=== PATIENT | male | born 1950 | race Caucasian/White ===

== ENCOUNTER 2023-05-27 12:43 | Inpatient (IN) | payer OTHER, MEDICAID ==
[~2023-05-27] VITALS: Ht 172.7 cm; Wt 43.1 kg
[2023-05-27 12:45] VITALS: BP 140/89; PULSE 87; RESP 16; TEMP 97.7; O2SAT 97
[2023-05-27 14:39] LABS: BILIRUBIN,URINE NEGATIVE (NEGATIVE); BLOOD, URINE 1+ (NEGATIVE); COLOR,URINE YELLOW (YELLOW); LEUKOCYTE ESTERASE ,URINE NEGATIVE (NEGATIVE); NITRITE, URINE NEGATIVE (NEGATIVE); PH,URINE 7.5 (5.0-9.0); PROTEIN,URINE NEGATIVE (NEGATIVE); UGLUCOSE NEGATIVE (NEGATIVE); UROBILINOGEN,URINE 0.2 EU/dL (0.2 - 1)
[2023-05-27 14:41] LABS: APPEARANCE,URINE SLIGHTLY HAZY (CLEAR)
[2023-05-27] MEDS ORDERED: LEVOFLOXACIN 500 MG/D5W PREMIX 100 ML IV ONE (14:57)
[2023-05-27 14:58] LABS: BASOPHILS % (AUTO) 0.4 % (0.0-2.0); EOSINOPHILS # (AUTO) 0.5 K/uL (0-0.4); HEMATOCRIT 34.5 % (36-52); HEMOGLOBIN 11.9 g/dL (12.0-18.0); LYMPHOCYTES # (AUTO) 1.3 K/uL (2.0-11.5); LYMPHOCYTES % (AUTO) 13.5 % (20.5-51.1); MEAN CORPUSCULAR HEMOGLOBIN 29 pg (27-31); MEAN CORPUSCULAR HGB CONC 34 g/dL (33-37); MEAN CORPUSCULAR VOLUME 85.3 fL (80-94); MONOCYTES # (AUTO) 0.5 K/uL (0.8-1.0); NEUTROPHILS # (AUTO) 7.2 K/uL (1.8-7.7); NEUTROPHILS % (AUTO) 76.1 % (42.2-75.2); PLATELET COUNT (AUTO) 240 K/uL (140-450); RED BLOOD CELL COUNT(AUTO) 4.04 MIL/uL (4.20-6.10); WHITE BLOOD COUNT (AUTO) 9.5 K/uL (4.8-10.8)
[2023-05-27] MEDS: NACL 0.9% 1,000 ML IV SCH (14:59)
[2023-05-27] MEDS: LEVOFLOXACIN 500 MG/D5W PREMIX 100 ML IV ONE (15:00)
[2023-05-27 15:08] LABS: ANION GAP 9.3 (8-16); CALCIUM 8.6 mg/dL (8.5-10.1); CARBON DIOXIDE 33.2 mmol/L (21-32); CHLORIDE 101 mmol/L (98-107); CREATININE 0.6 mg/dL (0.6-1.3); GLUCOSE 88 mg/dL (74-106); POTASSIUM 4.5 mmol/L (3.5-5.1); SODIUM SERUM 139 mmol/L (136-145); UREA NITROGEN, BLOOD 13 mg/dL (7-18)
[2023-05-27 15:17] LABS: ALANINE AMINOTRANSFERASE 26 U/L (12-78); ALBUMIN 2.7 g/dL (3.4-5.0); ALKALINE PHOSPHATASE 86 U/L (50-136); ASPARTATE AMINOTRANSFERASE 31 U/L (15-37); BILIRUBIN,DIRECT 0.1 mg/dL (0.0-0.3); TOTAL BILIRUBIN 0.5 mg/dL (0.0-1.0); TOTAL PROTEIN, SERUM 8.2 g/dL (6.4-8.2)
[2023-05-27 15:20] LABS: FLU A ANTIGEN negative (NEGATIVE); FLU B ANTIGEN NEGATIVE (NEGATIVE)
[2023-05-27] MEDS ORDERED: POTASSIUM CHLORIDE 10 MEQ TABER PO PRN (15:45)
[2023-05-27] MEDS ORDERED: KCL 20 MEQ IN 100 mL PREMIX 200 ML IV PRN (15:45)
[2023-05-27] MEDS ORDERED: MELATONIN 3 MG TAB PO PRN (15:45)
[2023-05-27] MEDS ORDERED: ONDANSETRON 4 MG/2 ML VIAL IVP PRN (15:45)
[2023-05-27] MEDS ORDERED: ACETAMINOPHEN 325 MG TAB PO PRN (15:45)
[2023-05-27] MEDS ORDERED: MORPHINE SULFATE 2 MG/ML SYR IVP PRN (15:45)
[2023-05-27] MEDS ORDERED: OMEP-283 PO (17:08)
[2023-05-27 17:20] VITALS: RESP 20; O2SAT 95
[2023-05-27 18:05] VITALS: PULSE 80; RESP 20; O2SAT 95
[2023-05-27] MEDS: HYDROcodone/APAP 5/325 MG 1 TAB TAB PO PRN (21:15)
[2023-05-27] MEDS: POLYETHYLENE GLYCOL 17 GM/PKT PO PRN (21:16)
[2023-05-28 06:45] LABS: BASOPHILS % (AUTO) 0.4 % (0.0-2.0); EOSINOPHILS # (AUTO) 0.5 K/uL (0-0.4); EOSINOPHILS % (AUTO) 5.4 % (0.0-4.0); HEMATOCRIT 31.3 % (36-52); HEMOGLOBIN 10.9 g/dL (12.0-18.0); LYMPHOCYTES # (AUTO) 1.1 K/uL (2.0-11.5); LYMPHOCYTES % (AUTO) 12.1 % (20.5-51.1); MEAN CORPUSCULAR HEMOGLOBIN 29 pg (27-31); MEAN CORPUSCULAR HGB CONC 35 g/dL (33-37); MEAN CORPUSCULAR VOLUME 84.1 fL (80-94); MONOCYTES # (AUTO) 0.4 K/uL (0.8-1.0); MONOCYTES % (AUTO) 4.9 % (1.7-9.3); NEUTROPHILS # (AUTO) 6.8 K/uL (1.8-7.7); NEUTROPHILS % (AUTO) 77.2 % (42.2-75.2); PLATELET COUNT (AUTO) 197 K/uL (140-450); RED BLOOD CELL COUNT(AUTO) 3.72 MIL/uL (4.20-6.10); RED CELL DISTRIBUTION WIDTH 14.7 % (11.6-13.7); WHITE BLOOD COUNT (AUTO) 8.8 K/uL (4.8-10.8)
[2023-05-28 07:12] LABS: ALANINE AMINOTRANSFERASE 22 U/L (12-78); ALBUMIN 2.4 g/dL (3.4-5.0); ALKALINE PHOSPHATASE 77 U/L (50-136); ANION GAP 11.9 (8-16); ASPARTATE AMINOTRANSFERASE 22 U/L (15-37); CALCIUM 8.1 mg/dL (8.5-10.1); CARBON DIOXIDE 26.7 mmol/L (21-32); CHLORIDE 102 mmol/L (98-107); CREATININE 0.7 mg/dL (0.6-1.3); GLUCOSE 88 mg/dL (74-106); MAGNESIUM 1.7 mg/dL (1.8-2.4); PHOSPHORUS 2.5 mg/dL (2.5-4.9); POTASSIUM 3.6 mmol/L (3.5-5.1); SODIUM SERUM 137 mmol/L (136-145); TOTAL BILIRUBIN 0.8 mg/dL (0.0-1.0); TOTAL PROTEIN, SERUM 7.4 g/dL (6.4-8.2); UREA NITROGEN, BLOOD 10 mg/dL (7-18)
[2023-05-28 08:00] VITALS: BP 134/84; PULSE 89; RESP 17; RESP 20; TEMP 98.6; O2SAT 95; O2SAT 96
[2023-05-28 12:00] VITALS: BP 119/76; PULSE 106; RESP 18; TEMP 99.1; O2SAT 96
[2023-05-28] MEDS ORDERED: CLINDAMYCIN 600 MG in DEXTROSE 5% 50 ML IV SCH (12:00)
[2023-05-28] MEDS: CLINDAMYCIN 600MG/D5W PM 50 ML IV SCH (12:29)
[2023-05-28 16:00] VITALS: BP 131/88; PULSE 80; PULSE 91; RESP 18; TEMP 99; O2SAT 92
[2023-05-28 20:00] VITALS: BP 115/67; PULSE 76; RESP 19; TEMP 99.2; O2SAT 97
[2023-05-29 04:00] VITALS: BP 103/58; PULSE 66; RESP 19; TEMP 98.4; O2SAT 97
[2023-05-29 06:28] LABS: BASOPHILS # (AUTO) 0.1 K/uL (0.00-0.22); EOSINOPHILS # (AUTO) 0.6 K/uL (0-0.4); EOSINOPHILS % (AUTO) 9.5 % (0.0-4.0); HEMATOCRIT 30.9 % (36-52); HEMOGLOBIN 10.5 g/dL (12.0-18.0); MEAN CORPUSCULAR HEMOGLOBIN 29 pg (27-31); MEAN CORPUSCULAR HGB CONC 34 g/dL (33-37); MEAN CORPUSCULAR VOLUME 84.7 fL (80-94); MONOCYTES # (AUTO) 0.4 K/uL (0.8-1.0); MONOCYTES % (AUTO) 6.3 % (1.7-9.3); NEUTROPHILS % (AUTO) 50.2 % (42.2-75.2); PLATELET COUNT (AUTO) 183 K/uL (140-450); RED BLOOD CELL COUNT(AUTO) 3.65 MIL/uL (4.20-6.10); RED CELL DISTRIBUTION WIDTH 14.9 % (11.6-13.7); WHITE BLOOD COUNT (AUTO) 6.1 K/uL (4.8-10.8)
[2023-05-29 07:10] LABS: ALANINE AMINOTRANSFERASE 18 U/L (12-78); ALBUMIN 2.4 g/dL (3.4-5.0); ALKALINE PHOSPHATASE 72 U/L (50-136); ANION GAP 8.5 (8-16); ASPARTATE AMINOTRANSFERASE 18 U/L (15-37); CALCIUM 7.7 mg/dL (8.5-10.1); CARBON DIOXIDE 30.8 mmol/L (21-32); CHLORIDE 102 mmol/L (98-107); CREATININE 0.6 mg/dL (0.6-1.3); GLUCOSE 89 mg/dL (74-106); PHOSPHORUS 3.6 mg/dL (2.5-4.9); POTASSIUM 3.3 mmol/L (3.5-5.1); SODIUM SERUM 138 mmol/L (136-145); TOTAL BILIRUBIN 0.6 mg/dL (0.0-1.0); TOTAL PROTEIN, SERUM 7.2 g/dL (6.4-8.2); UREA NITROGEN, BLOOD 10 mg/dL (7-18)
[2023-05-29 08:00] VITALS: BP 107/72; PULSE 68; RESP 18; TEMP 98.1; O2SAT 98
[2023-05-29 08:11] VITALS: PULSE 68; RESP 20; O2SAT 98
[2023-05-29 16:00] VITALS: BP 128/78; PULSE 69; RESP 18; TEMP 98; O2SAT 100
[2023-05-29] MEDS: KCL 20 MEQ IN 100 mL PREMIX 200 ML IV SCH ×2 (18:34→23:31)
[2023-05-29 20:00] VITALS: BP 120/70; PULSE 72; RESP 19; TEMP 98.5; O2SAT 97
[2023-05-30 07:48] LABS: BASOPHILS % (AUTO) 0.2 % (0.0-2.0); EOSINOPHILS # (AUTO) 0.7 K/uL (0-0.4); EOSINOPHILS % (AUTO) 14.6 % (0.0-4.0); HEMATOCRIT 32.6 % (36-52); LYMPHOCYTES # (AUTO) 1.4 K/uL (2.0-11.5); LYMPHOCYTES % (AUTO) 28.2 % (20.5-51.1); MEAN CORPUSCULAR HEMOGLOBIN 29 pg (27-31); MEAN CORPUSCULAR HGB CONC 34 g/dL (33-37); MEAN CORPUSCULAR VOLUME 85.1 fL (80-94); MONOCYTES # (AUTO) 0.3 K/uL (0.8-1.0); NEUTROPHILS # (AUTO) 2.5 K/uL (1.8-7.7); PLATELET COUNT (AUTO) 191 K/uL (140-450); RED BLOOD CELL COUNT(AUTO) 3.83 MIL/uL (4.20-6.10); RED CELL DISTRIBUTION WIDTH 14.9 % (11.6-13.7)
[2023-05-30 08:00] VITALS: BP 134/82; PULSE 74; RESP 16; TEMP 97.3; O2SAT 99
[2023-05-30 08:27] LABS: ALANINE AMINOTRANSFERASE 18 U/L (12-78); ALKALINE PHOSPHATASE 73 U/L (50-136); ANION GAP 11.6 (8-16); ASPARTATE AMINOTRANSFERASE 18 U/L (15-37); CALCIUM 7.9 mg/dL (8.5-10.1); CARBON DIOXIDE 28.5 mmol/L (21-32); CHLORIDE 100 mmol/L (98-107); CREATININE 0.7 mg/dL (0.6-1.3); GLUCOSE 52 mg/dL (74-106); MAGNESIUM 1.8 mg/dL (1.8-2.4); PHOSPHORUS 3.5 mg/dL (2.5-4.9); POTASSIUM 4.1 mmol/L (3.5-5.1); SODIUM SERUM 136 mmol/L (136-145); TOTAL BILIRUBIN 0.5 mg/dL (0.0-1.0); TOTAL PROTEIN, SERUM 7.7 g/dL (6.4-8.2); UREA NITROGEN, BLOOD 14 mg/dL (7-18)
[2023-05-30 08:58] LABS: ALBUMIN 2.6 g/dL (3.4-5.0)
[2023-05-30] MEDS ORDERED: PPN PER PHARMACY MC PRN (11:55)
[2023-05-30] MEDS ORDERED: INSULIN LISPRO SLIDING SCALE 100 UNITS/ML VIAL SUBQ PRN (12:55)
[2023-05-30 20:00] VITALS: BP 121/84; PULSE 83; RESP 16; TEMP 98.1; O2SAT 97; O2SAT 99
[2023-05-30] MEDS: AMINO ACIDS 8.5% IV SCH (21:40)
[2023-05-30] MEDS: DEXTROSE IV SCH (21:40)
[2023-05-30] MEDS: MULTIVITAMIN IV SCH (21:40)
[2023-05-31] MEDS: BLOOD GLUCOSE MONITORING 1 DEV DEV MC SCH
[2023-05-31 04:00] VITALS: BP 135/80; PULSE 16; RESP 16; TEMP 98.1; O2SAT 97
[2023-05-31 07:26] LABS: ALANINE AMINOTRANSFERASE 13 U/L (12-78); ALBUMIN 2.7 g/dL (3.4-5.0); ALKALINE PHOSPHATASE 70 U/L (50-136); ANION GAP 9.8 (8-16); ASPARTATE AMINOTRANSFERASE 19 U/L (15-37); CALCIUM 8.4 mg/dL (8.5-10.1); CARBON DIOXIDE 30.8 mmol/L (21-32); CHLORIDE 98 mmol/L (98-107); CHOL/HDL RATIO 3.9 (1-4.5); CREATININE 0.8 mg/dL (0.6-1.3); GLUCOSE 124 mg/dL (74-106); MAGNESIUM 1.5 mg/dL (1.8-2.4); PHOSPHORUS 3.6 mg/dL (2.5-4.9); POTASSIUM 3.6 mmol/L (3.5-5.1); SODIUM SERUM 135 mmol/L (136-145); TOTAL BILIRUBIN 0.4 mg/dL (0.0-1.0); TOTAL PROTEIN, SERUM 7.8 g/dL (6.4-8.2); UREA NITROGEN, BLOOD 17 mg/dL (7-18)
[2023-05-31 07:34] LABS: BASOPHILS # (AUTO) 0.1 K/uL (0.00-0.22); BASOPHILS % (AUTO) 1.2 % (0.0-2.0); EOSINOPHILS # (AUTO) 0.8 K/uL (0-0.4); HEMATOCRIT 32.9 % (36-52); HEMOGLOBIN 11.2 g/dL (12.0-18.0); LYMPHOCYTES # (AUTO) 1.2 K/uL (2.0-11.5); LYMPHOCYTES % (AUTO) 27.3 % (20.5-51.1); MEAN CORPUSCULAR HEMOGLOBIN 29 pg (27-31); MEAN CORPUSCULAR HGB CONC 34 g/dL (33-37); MEAN CORPUSCULAR VOLUME 85.2 fL (80-94); MONOCYTES # (AUTO) 0.3 K/uL (0.8-1.0); NEUTROPHILS % (AUTO) 45.5 % (42.2-75.2); PLATELET COUNT (AUTO) 200 K/uL (140-450); RED BLOOD CELL COUNT(AUTO) 3.87 MIL/uL (4.20-6.10); WHITE BLOOD COUNT (AUTO) 4.3 K/uL (4.8-10.8)
[2023-05-31 08:00] VITALS: TEMP 98.5
[2023-05-31 12:21] VITALS: BP 138/88; PULSE 69; RESP 16; TEMP 98.5; O2SAT 99
[2023-05-31 20:00] VITALS: BP 126/78; PULSE 70; RESP 14; TEMP 98.3; O2SAT 95
[2023-06-01] MEDS: MAG SULF 2000 MG/WATER PREMIX 50 ML IV PRN (00:17)
[2023-06-01 04:00] VITALS: BP 118/71; PULSE 66; RESP 14; TEMP 97.9; O2SAT 95
[2023-06-01 06:51] LABS: BASOPHILS % (AUTO) 0.7 % (0.0-2.0); EOSINOPHILS # (AUTO) 0.8 K/uL (0-0.4); EOSINOPHILS % (AUTO) 19.3 % (0.0-4.0); HEMATOCRIT 32.7 % (36-52); HEMOGLOBIN 11.3 g/dL (12.0-18.0); LYMPHOCYTES # (AUTO) 1.4 K/uL (2.0-11.5); LYMPHOCYTES % (AUTO) 33.8 % (20.5-51.1); MEAN CORPUSCULAR HEMOGLOBIN 29 pg (27-31); MEAN CORPUSCULAR HGB CONC 35 g/dL (33-37); MEAN CORPUSCULAR VOLUME 84.4 fL (80-94); MONOCYTES # (AUTO) 0.3 K/uL (0.8-1.0); MONOCYTES % (AUTO) 7.9 % (1.7-9.3); NEUTROPHILS # (AUTO) 1.6 K/uL (1.8-7.7); NEUTROPHILS % (AUTO) 38.3 % (42.2-75.2); PLATELET COUNT (AUTO) 198 K/uL (140-450); RED BLOOD CELL COUNT(AUTO) 3.87 MIL/uL (4.20-6.10); RED CELL DISTRIBUTION WIDTH 15.1 % (11.6-13.7); WHITE BLOOD COUNT (AUTO) 4.2 K/uL (4.8-10.8)
[2023-06-01 08:00] VITALS: BP 118/71; PULSE 70; RESP 14; TEMP 98.1; TEMP 98.4; O2SAT 96
[2023-06-01 08:00] LABS: ALANINE AMINOTRANSFERASE 17 U/L (12-78); ALBUMIN 2.6 g/dL (3.4-5.0); ALKALINE PHOSPHATASE 66 U/L (50-136); ANION GAP 9.4 (8-16); ASPARTATE AMINOTRANSFERASE 20 U/L (15-37); CALCIUM 8.3 mg/dL (8.5-10.1); CARBON DIOXIDE 30.1 mmol/L (21-32); CHLORIDE 98 mmol/L (98-107); CREATININE 0.6 mg/dL (0.6-1.3); GLUCOSE 134 mg/dL (74-106); MAGNESIUM 2.8 mg/dL (1.8-2.4); PHOSPHORUS 3.4 mg/dL (2.5-4.9); POTASSIUM 3.5 mmol/L (3.5-5.1); SODIUM SERUM 134 mmol/L (136-145); TOTAL BILIRUBIN 0.3 mg/dL (0.0-1.0); TOTAL PROTEIN, SERUM 7.7 g/dL (6.4-8.2); UREA NITROGEN, BLOOD 12 mg/dL (7-18)
[2023-06-01 16:00] VITALS: BP 118/71; PULSE 70; RESP 14; TEMP 97.4; O2SAT 96
[2023-06-01 20:00] VITALS: PULSE 74; RESP 14; TEMP 98.1; O2SAT 98
[2023-06-01] MEDS: DEXT 5% / NACL 0.45% 1,000 ML IV SCH (23:45)
[2023-06-02 04:00] VITALS: BP 98/64; PULSE 64; RESP 16; TEMP 97.5; O2SAT 96
[2023-06-02 08:00] VITALS: PULSE 70; RESP 14; TEMP 97.1; O2SAT 96
[2023-06-02 09:31] LABS: ALANINE AMINOTRANSFERASE 19 U/L (12-78); ALBUMIN 2.7 g/dL (3.4-5.0); ALKALINE PHOSPHATASE 65 U/L (50-136); ASPARTATE AMINOTRANSFERASE 26 U/L (15-37); CARBON DIOXIDE 31.9 mmol/L (21-32); CHLORIDE 99 mmol/L (98-107); CREATININE 0.8 mg/dL (0.6-1.3); GLUCOSE 134 mg/dL (74-106); PHOSPHORUS 3.9 mg/dL (2.5-4.9); POTASSIUM 3.9 mmol/L (3.5-5.1); SODIUM SERUM 134 mmol/L (136-145); TOTAL BILIRUBIN 0.3 mg/dL (0.0-1.0); TOTAL PROTEIN, SERUM 6.6 g/dL (6.4-8.2); UREA NITROGEN, BLOOD 13 mg/dL (7-18)
[2023-06-02 09:44] VITALS: BP 98/64; PULSE 70; RESP 14; TEMP 206.8; O2SAT 96
[2023-06-02] MEDS ORDERED: MULTIVITAMIN IV SCH (10:29)
[2023-06-02] MEDS ORDERED: DEXTROSE IV SCH (10:29)
[2023-06-02] MEDS ORDERED: AMINO ACIDS IV SCH (10:29)
[2023-06-02] MEDS ORDERED: [UNRECOGNIZED DRUG - OTHER] IV SCH (10:29)
[2023-06-02] MEDS ORDERED: MELA3TAB21 PO (11:54)
[2023-06-02 16:16] VITALS: BP 98/64; PULSE 70; RESP 14; TEMP 206.8
[2023-06-02 17:44] VITALS: BP 106/64; PULSE 86; RESP 18; TEMP 98; O2SAT 96
== END 2023-06-02 19:15 | DRG 640 ==
LOC: MED 12:43 → MTU 15:47 → UNDODISIN 06-01 13:44
PROVIDERS: ADMIT Family Medicine; ATTEND Family Medicine
DX: R62.7 Adult failure to thrive (principal); E43 Unspecified severe protein-calorie malnutrition; Z68.1 Body mass index [BMI] 19.9 or less, adult; Z20.822 Contact with and (suspected) exposure to COVID-19; Z86.73 Personal history of transient ischemic attack (TIA), and cerebral infarction without residual deficits
CPT/HCPCS: 36415; 71045; 71250; 80048; 80053; 80076; 81003; 82948; 83605; 83735; 83880; 84100; 84484; 85025; 87040; 87081; 87086; 92526; 93005; 96365; 97112; 97163-GP; 99285; A9153; J1644; J1815; J1956; J3475; J3480; J3490; J7060